=== PATIENT | female | born 2005 | race Caucasian/White ===

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

== ENCOUNTER 2023-04-19 22:21 | Observation (INO) | payer OTHER, SELFPAY ==
[2023-04-19 22:46] VITALS: BP 98/59; PULSE 93
[2023-04-19 23:00] VITALS: BP 103/60; PULSE 96
--- NOTE | 2023-04-19 23:28 | PC.NURSE ---
NST attempted per orders of Dr. Ratliff but unsuccessful. Doppler completed bedside. FHR baseline 145. No contractions noted on monitor. Pt cramping has decreased and she has marked movement of fetus.
[2023-04-19 23:58] VITALS: BP 98/56; PULSE 69; RESP 18; TEMP 36.7; O2SAT 99; BMI 18.7
--- NOTE | 2023-04-20 | OBADM ---
This patient, Malika Sauceda, admitted to the OB room OB Post 116 for observation. Patient/family oriented to hospital policies and general routines including ID bracelet, bed and alarms, visiting hours, pain management, procedures, bathroom and other care routines, personal items, smoking policy, room service/diet, and visiting hours. Patient/Family are encouraged to report perceived risks to care and to ask questions if they do not understand what they are told or what they should do.
--- NOTE | 2023-04-22 10:50 | PM.OBTRLD ---
OB - Triage/Final Diagnosis Visit Information Comments/Additional reasons for admission: I have assessed the risk for this patient, Malika Sauceda, and determined that she would benefit from observation care. Final Diagnosis (1) Cramping affecting , antepartum: Code(s): O26.899 - Other specified related conditions, unspecified trimester; R10.9 - Unspecified abdominal pain Status: Acute
== END 2023-04-20 00:10 | disposition home or self-care (01) ==
PROVIDERS: Admitting Provider Obstetrics & Gynecology; PCP Family Medicine; Visit Provider Obstetrics & Gynecology
DX: O26.899 Other specified pregnancy related conditions, unspecified trimester (principal); R10.9 Unspecified abdominal pain; Z3A.00 Weeks of gestation of pregnancy not specified
CPT/HCPCS: 99199; G0378; G0379

== ENCOUNTER 2023-05-17 12:58 | Observation (INO) | payer OTHER, SELFPAY ==
[2023-05-17] VITALS (68 sets, daily range): BP systolic 107–119; BP diastolic 61–69; PULSE 74–190; RESP 16; TEMP 37–37.3; O2SAT 94–100; BMI 19.1
--- NOTE | 2023-05-17 13:30 | OBADM ---
This patient, Malika Sauceda, admitted to the OB room 115 for observation. Patient/family oriented to hospital policies and general routines including ID bracelet, bed and alarms, visiting hours, pain management, procedures, bathroom and other care routines, personal items, smoking policy, room service/diet, and visiting hours. Patient/Family are encouraged to report perceived risks to care and to ask questions if they do not understand what they are told or what they should do.
[2023-05-17 15:18] LABS: Appearance Urine Clear (Clear); Bacteria Urine None Seen /hpf; Bilirubin Urine Negative (Negative); Blood Urine Negative (Negative); Color Urine Yellow (Yellow); Glucose Urine UA Negative (Negative); Ketones Urine Negative (Negative); Leukocyte Esterase Ur 3+ LEU/UL (Negative); Need Manual Microscopic Reviewed; Nitrate Urine Negative (Negative); Non Pathogenic Casts 0-2; Protein Urine Negative (Negative); RBC Urine 0-2 /hpf (0-2); Specific Grav Ur 1.004 (1.001-1.035); Squamous Epithelial Cell Urine Few /hpf (Few); Urobilinogen Urine 0.2 mg/dL (<2.0); pH Urine 7.5 (5.0-9.0)
[2023-05-17 15:23] LABS: Add Urine Microscopic? YES
[2023-05-17] MEDS: LACTATED RINGERS 1,000 ML 999 ML IV CONT (15:53)
[2023-05-17] MEDS: cefTRIAXone 2 GM/NS 100 ML 2 GM/100 ML BAG IVPB (16:20)
[2023-05-17] MEDS: ACETAMINOPHEN 500 MG TABLET 1000 MG PO (17:13)
[2023-05-17] MEDS: TERBUTALINE SULFATE 1 MG/ML VIAL 0.25 MG SUB-Q (18:49)
--- NOTE | 2023-05-17 19:40 | PC.NURSE ---
Occasional contraction noted with uterine irritability present prior to terb. Pt states cramping pain has decreased since receiving the terbutaline and she feels comfortable leaving at this time. Fundus soft to palpation. Instructed to bead picker abx in the morning and call office if symptoms have worsened. Precautions given.
--- NOTE | 2023-05-23 13:01 | PM.OBTRLD ---
OB - Triage/Final Diagnosis Visit Information Comments/Additional reasons for admission: I have assessed the risk for this patient, Malika Sauceda, and determined that she would benefit from observation care. Evaluation Laboratory results: Laboratory Tests 05/17/23 14:19 Urine Color Yellow Urine Appearance Clear Urine pH 7.5 Ur Specific [place] 1.004 Urine Protein Negative Urine Glucose (UA) Negative Urine Ketones Negative Ur Blood (Man) Negative Urine Nitrate Negative Urine Bilirubin Negative Urine Urobilinogen 0.2 Add Ur Microanalysis Reviewed Leukocyte Esterase Rfl 3+ H Urine RBC 0-2 Urine WBC 11-20 H Ur Squamous Epith Cells Few Urine Bacteria None seen Urine Casts 0-2 Final Diagnosis (1) Irregular contractions: Code(s): O47.9 - False labor, unspecified Status: Acute (2) Vaginal discharge during : Code(s): O26.899 - Other specified related conditions, unspecified trimester; N89.8 - Other specified noninflammatory disorders of vagina Status: Acute
== END 2023-05-17 19:42 | disposition home or self-care (01) ==
LOC: ANHOBOP 13:16 → ANHOBPP 13:18 → ANHOBOP 13:37 → ANHOBPP 13:37
PROVIDERS: Admitting Provider Obstetrics & Gynecology; PCP Family Medicine; Visit Provider Obstetrics & Gynecology
DX: O47.02 False labor before 37 completed weeks of gestation, second trimester (principal); O26.892 Other specified pregnancy related conditions, second trimester; N89.8 Other specified noninflammatory disorders of vagina; Z3A.27 27 weeks gestation of pregnancy
CPT/HCPCS: 81001; 84112; 87077; 87086; 87088; 96365; 96372; A9270; G0378; G0379; J0696; J3105; J7120

== ENCOUNTER 2023-06-16 06:58 | Observation (INO) | payer OTHER, SELFPAY ==
[2023-06-16] VITALS (14 sets, daily range): BP systolic 106–123; BP diastolic 59–79; PULSE 67–121; BMI 20.1
--- NOTE | ~2023-06-16 | US_ITS ---
EXAMINATION: US OB follow up DATE: 06/16/2023 08:12 INDICATION: Vaginal bleeding during third trimester TECHNIQUE: Real-time ultrasound of the pelvis was performed. The interpreting radiologist was not pre sent for the study. COMPARISON: None. FINDINGS: There is a single living fetus in vertex presentation. The placenta is anterior/fundal. Fet al cardiac activity and movement are noted. heart rate is 139 beats per minute (bpm). The amniotic fluid index is 14.4 which is normal (normal range: 8.8 cm to 23.8 cm). The following biometric data were obtained: Biparietal diameter (BPD): 8.2 cm; head circumference (HC): 29.8 cm; abdominal circumference (AC): 28 .4 cm; femur length (FL): 5.9 cm. These measurements are concordant. Estimated weight is 1905 g +/- 285 g, which correlates with the 52nd percentile when 08/13/2023 is used as estimated date of delivery. As single measurements, these parameters are each equal to the following estimated gestational ages w ith ranges of +/- 2 standard deviations: BPD: 32 weeks 6 days +/- 3 weeks 1 days. HC: 33 weeks 1 days +/- 3 weeks 0 days. AC: 32 weeks 3 days +/- 3 weeks 0 days. FL: 31 weeks 0 days +/- 3 weeks 0 days. estimated gestational age based solely on measurements from this exam is 32 weeks 3 days +/- 2 weeks 2 days. IMPRESSION: 1. Single living fetus in vertex presentation. 2. Normal amniotic fluid index. 3. Estimated weight is 1905 g +/- 285 g, which correlates with the 52nd percentile when 08/13/19 24 is used as estimated date of delivery. Reviewed, dictated and finalized at location L. [employer] IMPRESSION: 1. Single living fetus in vertex presentation. 2. Normal amniotic fluid index. 3. Estimated weight is 1905 g +/- 285 g, which correlates with the 52nd p ercentile when 08/13/2023 is used as estimated date of delivery.
--- NOTE | 2023-06-16 07:34 | LDADM ---
This patient, Malika Sauceda, was admitted to OB Post 113 on 06/16/23 at 06:58. Plans for labor, pain management and were discussed with patient. Patient/family oriented to hospital policies and general routines including ID bracelet, bed and alarms, visiting hours, pain management, procedures, bathroom and other care routines, personal items, smoking policy, room service/diet and guest tray routines, infant security routines, and visiting hours. Patient/Family are encouraged to report perceived risks to care and to ask questions if they do not understand what they are told or what they should do. See OBIX for further documentation.
--- NOTE | 2023-06-16 07:37 | PC.NURSE ---
Patient presented to L&D unit with complaints of vaginal bleeding since 0600. Patient felt bleeding and put a isamar pad on. Patient presented picture of her bleeding from this morning. Patient had small amount of red blood on isamar pad. Patient has had no bleeding since the initial amount. She complains of mild abdominal cramping. RN spoke with Dr. Ribeiro and obtained observation orders as well as orders for an ultrasound and cervical exam. Patient agrees with plan of care at this time and has no questions.
[2023-06-16 07:56] LABS: Appearance Urine Clear (Clear); Bacteria Urine None Seen /hpf; Bilirubin Urine Negative (Negative); Blood Urine Trace (Negative); Color Urine Yellow (Yellow); Glucose Urine UA Negative (Negative); Ketones Urine Negative (Negative); Leukocyte Esterase Ur 3+ LEU/UL (Negative); Nitrate Urine Negative (Negative); Non Pathogenic Casts 0-2; Protein Urine Negative (Negative); RBC Urine 0-2 /hpf (0-2); Specific Grav Ur 1.004 (1.001-1.035); Squamous Epithelial Cell Urine Occasional /hpf (Few); Urobilinogen Urine 0.2 mg/dL (<2.0); WBC Urine 51-100 /hpf; pH Urine 7.5 (5.0-9.0)
[2023-06-16 08:30] LABS: Add Urine Microscopic? YES
--- NOTE | 2023-06-16 10:53 | PM.IMHP ---
H&P: HPI History of Present Illness Date/Time: 06/16/23 10:53 Chief Complaint: vaginal bleeding Narrative: This patient is a 17-year-old 1 at 32 weeks gestation who presents with vaginal bleeding. She was observed for some time. She was observed having some a contractions on the monitor. No blood was appreciated here. Ultrasound performed. The placenta appears placed with no evidence of Abruption. Cervix is normal length. Digital exam was normal. Urine showed white cells and red blood cells in significant amounts. Will treat for urinary tract infection and discharged from home. Uterus adult down after a period of observation. More than 30 minutes were spent on the evaluation and management of this patient. Review of Systems Review of Systems: All systems reviewed & are unremarkable except as noted in HPI and below Constitutional: Constitutional: Denies chills, Denies fatigue, Denies fever(s) and Denies weakness Eyes: Eyes: Denies blurry vision, Denies change in vision, Denies loss of peripheral vision, Denies loss of vision, Denies other visual disturbances and Denies eye pain ENT: Denies vertigo, Denies dizziness, Denies hearing loss, Denies mouth pain, Denies nasal obstruction, Denies neck mass and Denies neck pain Cardiovascular: Cardiovascular: Denies chest pain, Denies diaphoresis, Denies syncope, Denies leg edema and Denies dyspnea Respiratory: Respiratory: Denies chest congestion, Denies cough, Denies hemoptysis, Denies dyspnea and Denies wheezing Gastrointestinal: Gastrointestinal: Denies abdominal pain, Denies constipation, Denies diarrhea, Denies nausea and Denies vomiting Genitourinary: Genitourinary: Denies hematuria, Denies change in libido, Denies nocturia, Denies genital lesions, Denies flank pain and Denies urinary urgency Musculoskeletal: Musculoskeletal: Denies abnormal gait, Denies back pain, Denies myalgias, Denies arthralgias, Denies joint swelling, Denies muscle weakness and Denies neck pain Integumentary/Breasts: Skin/Breast: Denies swelling, Denies breast pain, Denies breast mass, Denies dry skin, Denies nipple discharge, Denies unusual bruising and Denies jaundice Neurologic: Denies Neuro-related abnormal movements, Denies Abnormal speech present, Denies abnormal gait, Denies behavioral changes, Denies confusion, Denies vertigo, Denies dizziness, Denies syncope, Denies loss of vision, Denies memory loss, Denies convulsions and Denies weakness Psychiatric: Psychiatric: Denies abnormal sleep pattern, Denies behavioral changes, Denies change in libido, Denies confusion, Denies depression, Denies anhedonia and Denies memory loss Endocrine: Endocrine: Reports no additional endocrine complaints, Denies change in libido and Denies fatigue Hematologic/Lymphatic: Hematologic/Lymphatic: Reports no additional hematologic/lymphatic complaints Allergic/Immunologic: Allergic/Immunologic: Reports no additional allergic/immunologic complaints and Denies wheezing PMFSH Past Medical History Medical History (Updated 06/16/23 @ 10:56 by Sarai Ribeiro MD) No pertinent past medical history Social History Social History (Updated 12/19/22 @ 14:18 by Shweta Espana APRN) Tobacco type: e-cigarettes/vaping Meds Home Medications and Allergies Home Medications Medication Instructions Recorded Confirmed Type vitamin #56-iron 35 mg 1 cap PO DAILY #30 caps 12/19/22 05/17/23 Rx and 5 mg-folic acid 1 mg-dha capsule albuterol sulfate 90 mcg/actuation 2 puff inhalation Q4H PRN 05/17/23 05/17/23 History aerosol inhaler Shortness Of Breath cephalexin 500 mg capsule 500 mg PO Q6H 7 days #28 caps 05/17/23 Rx ferrous sulfate 142 mg (45 mg 142 mg PO DAILY 05/17/23 05/17/23 History iron) tablet,extended release ondansetron 4 mg disintegrating 4 mg PO Q6H PRN Nausea And Vomiting 05/17/23 05/17/23 History tablet Allergies Allergy/AdvReac Type Severity Reaction Status Date / [place]
--- NOTE | 2023-06-16 11:13 | PC.NURSE ---
Dr. Ribeiro at bedside, okay to discharge with macrobid. Patient has OB appt tomorrow.
--- NOTE | 2023-07-03 11:23 | PM.OBTRLD ---
OB - Triage/Final Diagnosis Visit Information Comments/Additional reasons for admission: I have assessed the risk for this patient, Malika Sauceda, and determined that she would benefit from observation care. Evaluation Laboratory results: Laboratory Tests 06/16/23 07:35 Urine Color Yellow Urine Appearance Clear Urine pH 7.5 Ur Specific [place] 1.004 Urine Protein Negative Urine Glucose (UA) Negative Urine Ketones Negative Ur Blood (Man) Trace Urine Nitrate Negative Urine Bilirubin Negative Urine Urobilinogen 0.2 Leukocyte Esterase Rfl 3+ H Urine RBC 0-2 Urine WBC 51-100 H Ur Squamous Epith Cells Occasional Urine Bacteria None seen Urine Casts 0-2 Final Diagnosis (1) Vaginal bleeding during : Code(s): O46.90 - Antepartum hemorrhage, unspecified, unspecified trimester Status: Acute
== END 2023-06-16 11:15 | disposition home or self-care (01) ==
PROVIDERS: Admitting Provider Obstetrics & Gynecology; Visit Provider Obstetrics & Gynecology
DX: O46.93 Antepartum hemorrhage, unspecified, third trimester (principal); O23.43 Unspecified infection of urinary tract in pregnancy, third trimester; N39.0 Urinary tract infection, site not specified; Z3A.31 31 weeks gestation of pregnancy
CPT/HCPCS: 76816; 81001; 87086; G0378; G0379

== ENCOUNTER 2023-07-09 20:06 | Observation (INO) | payer OTHER, SELFPAY ==
[2023-07-09 20:48] VITALS: BMI 20.9
[2023-07-09] MEDS: ACETAMINOPHEN 500 MG TABLET 1000 MG PO (20:52)
[2023-07-09 20:57] VITALS: BP 121/73; PULSE 97
[2023-07-09] MEDS: NIFEdipine 30 MG TAB.ER.24 PO (21:33)
[2023-07-09 21:36] LABS: Appearance Urine Cloudy (Clear); Bacteria Urine 1+ /hpf; Bilirubin Urine Negative (Negative); Blood Urine 1+ (Negative); Color Urine Yellow (Yellow); Glucose Urine UA Negative (Negative); Ketones Urine Negative (Negative); Leukocyte Esterase Ur 3+ LEU/UL (Negative); Nitrate Urine Negative (Negative); Non Pathogenic Casts 0-2; Protein Urine Negative (Negative); Specific Grav Ur 1.008 (1.001-1.035); Squamous Epithelial Cell Urine Few /hpf (Few); Urobilinogen Urine 0.2 mg/dL (<2.0); WBC Urine >100 /hpf (0-3)
--- NOTE | 2023-07-09 21:36 | OBADM ---
This patient, Malika Sauceda, admitted to the OB room Labor/Delivery/Recovery 106 for observation. Patient/family oriented to hospital policies and general routines including ID bracelet, bed and alarms, visiting hours, pain management, procedures, bathroom and other care routines, personal items, smoking policy, room service/diet, and visiting hours. Patient/Family are encouraged to report perceived risks to care and to ask questions if they do not understand what they are told or what they should do.
[2023-07-09 21:38] LABS: Add Urine Microscopic? YES
--- NOTE | 2023-07-09 21:53 | PC.NURSE ---
2006: pt presents to L&D with complaints of contractions that began this afternoon. pt states she had to have terbutaline shot at around 23 weeks for labor and has a history of UTI's in which she is taking a daily antibiotic for until delivery. pt denies any leaking of fluid or vaginal bleeding and has positive movement.
--- NOTE | 2023-07-09 21:54 | PC.NURSE ---
2036: Breezy Medina [facility] notified of pt status, orders obtained. 2039: pt refusing terbutaline. states she does not want it because she does not like the way it makes her feel. educated on risks of not receiving the medication, pt verbalizes understanding and states she still refuses. 2102: Breezy Medina [facility] notified of pt refusal of medication. new med orders obtained. 2109: pt refusing IV and IV fluid bolus but will take procardia PO. educated on risks of receiving IV fluid bolus, pt verbalizes understanding and states she still refuses. Encouraged pt to oral hydrate.
--- NOTE | 2023-07-09 22:07 | PC.NURSE ---
2002: Breezy CHAIDEZ notified of pt urine results, orders obtained
[2023-07-09] MEDS: LIDOCAINE HCL 1% LOCAL INJ 20 ML VIAL INFILTRATE (22:45)
[2023-07-09] MEDS: cefTRIAXone 250 MG VIAL IM (22:45)
--- NOTE | 2023-07-09 22:51 | PC.NURSE ---
2202: Abbie [facility] notified of urine results, orders obtained
--- NOTE | 2023-07-09 23:11 | PC.NURSE ---
2308: Breezy CHAIDEZ notified of pt status, instructed to send pt home if she is comfortable with that
--- NOTE | 2023-07-09 23:20 | PC.NURSE ---
2320: pt states she would like to go home. educated on when to call or come back to OB.
--- NOTE | 2023-07-11 16:39 | PM.OBTRLD ---
OB - Triage/Final Diagnosis Visit Information Date of evaluation: 07/09/23 Reason for evaluation: threatened labor Comments/Additional reasons for admission: I have assessed the risk for this patient, Malika Sauceda, and determined that she would benefit from observation care. Evaluation Laboratory results: Laboratory Tests 07/09/23 21:11 Urine Color Yellow Urine Appearance Cloudy H Urine pH 7.0 Ur Specific [place] 1.008 Urine Protein Negative Urine Glucose (UA) Negative Urine Ketones Negative Ur Blood (Man) 1+ H Urine Nitrate Negative Urine Bilirubin Negative Urine Urobilinogen 0.2 Leukocyte Esterase Rfl 3+ H Urine RBC 6-10 H Urine WBC >100 H Ur Squamous Epith Cells Few Urine Bacteria 1+ H Urine Casts 0-2
== END 2023-07-09 23:44 | disposition home or self-care (01) ==
PROVIDERS: Advanced Practice Midwife; Admitting Provider Obstetrics & Gynecology; Visit Provider Obstetrics & Gynecology
DX: O47.03 False labor before 37 completed weeks of gestation, third trimester (principal); Z3A.35 35 weeks gestation of pregnancy
CPT/HCPCS: 87086; 87088; 96372; A9270; G0378; G0379; J0696

== ENCOUNTER 2023-07-10 14:25 | Observation (INO) | payer OTHER, SELFPAY ==
--- NOTE | ~2023-07-10 | US_ITS ---
EXAMINATION: US OB limited DATE: 07/10/2023 17:31 INDICATION: Placenta check, vaginal bleeding . TECHNIQUE: Real-time ultrasound of the pelvis was performed. COMPARISON: 06/16/2023. FINDINGS: There is a single living fetus in vertex presentation. The placenta is anterior, normal in appearanc e, and well distant from the cervix. The cervix was obscured by the head. heart rate is 1 47 bpm. IMPRESSION: Single living fetus in vertex presentation. Sonographically normal appearing placenta. Reviewed, dictated and finalized at location K.
[2023-07-10 14:52] VITALS: BP 110/72; PULSE 122
[2023-07-10 15:00] VITALS: BP 104/69; PULSE 117
[2023-07-10 15:15] VITALS: BP 107/61; PULSE 96
[2023-07-10 15:30] VITALS: BP 102/64; PULSE 107
--- NOTE | 2023-07-10 15:32 | OBADM ---
This patient, Malika Sauceda, admitted to the OB room OB Post 117 for observation. Patient/family oriented to hospital policies and general routines including ID bracelet, bed and alarms, visiting hours, pain management, procedures, bathroom and other care routines, personal items, smoking policy, room service/diet, and visiting hours. Patient/Family are encouraged to report perceived risks to care and to ask questions if they do not understand what they are told or what they should do.
[2023-07-10 15:45] VITALS: BP 100/58; PULSE 95
[2023-07-10 16:00] VITALS: BP 96/59; PULSE 99
--- NOTE | 2023-07-11 16:37 | PM.OBTRLD ---
OB - Triage/Final Diagnosis Visit Information Date of evaluation: 07/10/23 Reason for evaluation: other (bleeding) Comments/Additional reasons for admission: I have assessed the risk for this patient, Malika Sauceda, and determined that she would benefit from observation care.
== END 2023-07-10 18:28 | disposition home or self-care (01) ==
PROVIDERS: Admitting Provider Obstetrics & Gynecology; Visit Provider Obstetrics & Gynecology
DX: O46.93 Antepartum hemorrhage, unspecified, third trimester (principal); Z3A.35 35 weeks gestation of pregnancy
CPT/HCPCS: 76815; G0378; G0379

== ENCOUNTER 2023-07-27 16:36 | Outpatient (CLI) | payer OTHER, SELFPAY ==
[2023-07-27 19:40] VITALS: BP 126/79; PULSE 100
== END 2023-07-27 18:55 | disposition home or self-care (01) ==
LOC: ANHOBOP 18:48 → ANHOBPP 18:52
PROVIDERS: Visit Provider Advanced Practice Midwife
DX: O42.90 Premature rupture of membranes, unspecified as to length of time between rupture and onset of labor, unspecified weeks of gestation (principal); Z3A.00 Weeks of gestation of pregnancy not specified
CPT/HCPCS: 59025; 84112; 99199

== ENCOUNTER 2023-08-07 05:06 | Inpatient (IN) | payer OTHER, SELFPAY ==
[2023-08-07] VITALS (116 sets, daily range): BP systolic 69–146; BP diastolic 45–96; PULSE 47–166; RESP 15–16; TEMP 36.2–37; O2SAT 80–100; BMI 22.9
--- NOTE | 2023-08-07 05:46 | LDADM ---
This patient, Malika Sauceda, was admitted to Labor/Delivery/Recovery 104 on 08/07/23 at 05:06. Plans for labor, pain management and were discussed with patient. Patient/family oriented to hospital policies and general routines including ID bracelet, bed and alarms, visiting hours, pain management, procedures, bathroom and other care routines, personal items, smoking policy, room service/diet and guest tray routines, security routines, and visiting hours. Patient/Family are encouraged to report perceived risks to care and to ask questions if they do not understand what they are told or what they should do. See OBIX for further documentation.
[2023-08-07 05:52] LABS: Basophils Percent Auto 0.2 % (0.2-1.2); Eosinophils Absolute Auto 0.2 K/mm3 (0-0.3); Eosinophils Percent Auto 1.1 % (0-4.4); Hematocrit 39.6 % (37.0-47.0); Immature Granulocyte Absolute 0.06 K/mm3 (0.00-0.031); Immature Granulocyte Percent A 0.4 % (0-0.5); Lymphocytes Absolute Auto 2.53 K/mm3 (0.9-3.2); Lymphocytes Percent Auto 18.2 % (18.3-44.2); Mean Corpuscular HGB Conc 32.8 g/dl (32-36); Mean Corpuscular Volume 94.3 fl (80-100); Mean Platelet Volume 11.6 fl (7.4-10.4); Monocytes Absolute Auto 0.8 K/mm3 (0.1-0.6); Monocytes Percent Auto 5.9 % (2.6-8.5); Neutrophils Absolute Auto 10.3 K/mm3 (1.3-6.7); Neutrophils Percent Auto 74.2 % (45.5-73.1); Platelet Count Result 230 k/mm3 (150-375); Red Cell Distribution Width 14.8 % (11.5-14.5); White Blood Count 13.9 K/mm3 (4.5-10.0)
[2023-08-07] MEDS: ONDANSETRON INJ 4 MG/2 ML VIAL IV PUSH ×2 (06:06→12:31)
[2023-08-07] MEDS: LACTATED RINGERS 1,000 ML 125 ML IV CONT ×3 (06:06→12:14)
[2023-08-07] MEDS: fentaNYL CITRATE INJ (*CRX) 100 MCG/2 ML VIAL 50 MCG IV PUSH (06:21)
--- NOTE | 2023-08-07 06:28 | WPDANESEPPF ---
Anes - Initial Pre Proc Eval Procedure: Labor epidural Date/Time: 08/07/23 06:28 Surgeon: Erik Ratliff MD Pre Op Diagnosis: Lsbor pain Pre Op Diagnosis: Contractions Patient Data Age: 18 Gender: F Height: 1.57 m Weight: 57 kg Last Vital Signs Pulse 75 08/07/23 05:45 BP 143/96 H 08/07/23 05:45 Pulse Ox 97 08/07/23 06:26 O2 Del Method Room Air 08/07/23 05:45 Allergies Allergy/AdvReac Type Severity Reaction Status Date / Time No Known Allergies Allergy Verified 12/19/22 13:40 Home Medications Medication Instructions Recorded Confirmed Type vitamin #56-iron 35 mg 1 cap PO DAILY #30 caps 12/19/22 07/09/23 Rx and 5 mg-folic acid 1 mg-dha capsule albuterol sulfate 90 mcg/actuation 2 puff inhalation Q4H PRN 05/17/23 07/09/23 History aerosol inhaler Shortness Of Breath ferrous sulfate 142 mg (45 mg 142 mg PO BID 05/17/23 07/09/23 History iron) tablet,extended release ondansetron 4 mg disintegrating 4 mg PO Q6H PRN Nausea And Vomiting 05/17/23 07/09/23 History tablet nitrofurantoin macrocrystal 100 mg 100 mg PO Q12H #14 caps 07/10/23 Rx capsule Laboratory Tests 08/07/23 05:37 WBC 13.9 H K/mm3 (4.5-10.0) RBC 4.20 M/mm3 (4.2-5.4) Hgb 13.0 g/dL (12.0-15.0) Hct 39.6 % (37.0-47.0) MCV 94.3 fl (80-100) MCH 31.0 pg (26-34) MCHC 32.8 g/dl (32-36) RDW 14.8 H % (11.5-14.5) Plt Count 230 k/mm3 (150-375) MPV 11.6 H fl (7.4-10.4) Immature Gran % (Auto) 0.4 % (0-0.5) Neut % (Auto) 74.2 H % (45.5-73.1) Lymph % (Auto) 18.2 L % (18.3-44.2) [place] % (Auto) 5.9 % (2.6-8.5) Eos % (Auto) 1.1 % (0-4.4) Baso % (Auto) 0.2 % (0.2-1.2) Lymph # (Auto) 2.53 K/mm3 (0.9-3.2) [place] # (Auto) 0.8 H K/mm3 (0.1-0.6) Eos # (Auto) 0.2 K/mm3 (0-0.3) Baso # (Auto) 0.0 K/mm3 (0.0-0.1) Abs Immat Gran (auto) 0.06 H K/mm3 (0.00-0.031) Absolute Neuts (auto) 10.3 H K/mm3 (1.3-6.7) Absolute Nucleated RBC 0.000 K/mm3 (0.0-0.012) Nucleated RBC % 0.0 % (0.0-0.2) RPR Pending Blood Type Pending Antibody Screen Pending Patient hx anesthesia problems: none Family hx anesthesia problems: none Results Review: All pre-operative results and documents have been reviewed as part of the pre-operative evaluation. [facility] Past Medical History Medical History No pertinent past medical history Family History Family History Other Patient denies significant medical history Social History Social History Smoking status: Current every day smoker Tobacco type: e-cigarettes/vaping Substance use: current Last use: daily Do You Feel Safe in your Home?: Yes Lack of Transportation: No Lack of Food: Never True Current Housing: I Have Housing Concerned About Future Housing: No Difficulty Paying Gas/Electric Bills: No Difficulty Paying for Meds: No Currently Unemployed: No Education: Grade School Difficulty w/ Childcare or Family Care: No Spiritual care concerns: No Anes - Eval Final PreProcedure Day of Procedure 08/07/23 06:28 Patient weight: normal Heart: regular rate and rhythm Lungs: clear to auscultation Airway: Mallampati scale class II Neurological: alert and oriented ASA classification: III Anesthesia type and monitoring: regional epidural and standard monitoring Results Review: All pre-operative results and documents have been reviewed as part of the pre-operative evaluation. Informed Consent: The patient's anesthetic plan and its attendant risks and benefits were discussed with the patient/family/POA. Questions were solicited and answers provided to the satisfaction of the patient/family/POA.
[2023-08-07] MEDS: ALBUTEROL SULFATE (*SP) AEROSOL 1 PUFF 2 PUFF INHALATION (11:35)
--- NOTE | 2023-08-07 12:33 | WPDOBADMIT ---
Obstetrics - Admit Note Admission Note: record reviewed. No pertinent additions to the history and/or any subsequent changes in the physical findings that are not consistent with the expected course of the were found. Additions to the history and/or subsequent changes in the physical findings follow. pt arrived in labor, anticipate vaginal dleivery
[2023-08-07] MEDS: OXYTOCIN 30 UNITS/NS 500 ML 30 UNITS/500 ML BAG 999 UNITS IV CONT (13:18)
--- NOTE | 2023-08-07 13:28 | P.PCNOB_ITS ---
OB - Vaginal Delivery Note Procedure Delivery date: 08/07/23 Delivery monitor: External FHT and Internal Uterine Episiotomy description: None Laceration Description: Labial (right, 1 stitch) Delivery repair: vicryl Specimen: No Quantitative Blood Loss (ml): 175 Anesthesia type: Epidural Disposition: Floor Complications: No immediate complications [place] Baby Date of : 08/07/23 Time of : 13:13 Weeks of gestation at delivery: 39 gender: Female presentation: vertex position: Left Occiput Anterior Placenta delivery description: Spontaneous Cord Vessel Description: 3 Vessels and Delayed Cord Clamping score one minute: 8 score five minutes: 9 Narrative: mother and baby skin to skin in stable condition
[2023-08-07] MEDS: OXYTOCIN 30 UNITS/NS 500 ML 30 UNITS/500 ML BAG 125 UNITS IV CONT (13:52)
[2023-08-07] MEDS: ACETAMINOPHEN 325 MG TABLET 650 MG PO (15:41)
[2023-08-07] MEDS: BENZOCAINE 20% AER SPR (*SP) 56 GM CAN 1 SPRAY TOPICAL (15:42)
[2023-08-07] MEDS: WITCH HAZEL 40 PADS 1 PAD TOPICAL (15:42)
--- NOTE | 2023-08-07 16:27 | OBPPTRN ---
Patient transferred to post room #292 via wheelchair, baby in crib at bedside. Support person present. Oriented to unit, room, information board, rooming in, admission packet and security measures. Patient verbalizes understanding.
[2023-08-07] MEDS: DOCUSATE SODIUM 100 MG CAPSULE PO (18:03)
[2023-08-07] MEDS: IBUPROFEN 600 MG TABLET PO (18:04)
[2023-08-08 04:00] VITALS: BP 94/56; PULSE 74; RESP 18; TEMP 36.9; O2SAT 99
[2023-08-08 06:08] LABS: Hematocrit 35.6 % (37.0-47.0); Hemoglobin 11.6 g/dL (12.0-15.0)
--- NOTE | 2023-08-08 07:36 | WPDANLDPN2 ---
Anes-Prog Note L&D Date/Time: 08/08/23 07:36 Comfortable throughout: labor and delivery Neuraxial method: epidural Epidural/Spinal procedure site: clean & non-tender Neuro status: Neuro function grossly intact. Cardiovascular status: normal Respiratory status: normal Airway patency: baseline Mental status: baseline Post-Op hydration status: normal Vital Signs: Last Vital Signs Temp 37.0 C 08/07/23 19:41 Pulse 99 08/07/23 19:41 Resp 15 08/07/23 19:41 BP 129/70 08/07/23 19:41 Pulse Ox 99 08/07/23 19:41 O2 Del Method Room Air 08/07/23 05:45 Pain score (VAS): 2 I/O: Intake & Output 08/07/23 08/07/23 08/08/23 15:59 23:59 07:59 Intake Total 1210.4 Output Total 325 Balance 885.4 Patient feedback: Patient satisfied with anesthetic care.
[2023-08-08 07:45] VITALS: BP 120/70; PULSE 88; RESP 18; TEMP 36.9; O2SAT 100
--- NOTE | 2023-08-08 08:22 | WPDANLDPN2 ---
Anes-Prog Note L&D Date/Time: 08/08/23 08:22 Comfortable throughout: labor and delivery Neuraxial method: epidural Epidural/Spinal procedure site: tender (localized tenderness to epidural site) Neuro status: Neuro function grossly intact. Cardiovascular status: normal Respiratory status: normal Airway patency: baseline Mental status: baseline Post-Op hydration status: normal Vital Signs: Last Vital Signs Temp 36.9 C 08/08/23 04:00 Pulse 74 08/08/23 04:00 Resp 18 08/08/23 04:00 BP 94/56 L 08/08/23 04:00 Pulse Ox 99 08/08/23 04:00 O2 Del Method Room Air 08/07/23 05:45 Pain score (VAS): 1/10 Patient feedback: Patient satisfied with anesthetic care.
--- NOTE | 2023-08-08 08:28 | PM.OBPNVD ---
OB - PN: Subj Subjective Date/time seen: 08/08/23 08:28 Interval history: pp day 1 doing well baby not feeding well OB - PN: Obj Data Labs 08/08/23 05:04 Labs: Laboratory Results - last 24 hr 08/08/23 05:04 Hgb 11.6 L Hct 35.6 L OB - PN A/P Plan day: 1 Plan: routine care Time Spent With Patient Time: Total time spent is greater than 50% in coordination of care (as documented) at patient's floor/unit and/or counseling patient: Review of Systems Review of Systems: All systems reviewed & are unremarkable except as noted in HPI and below Exam Const: General: cooperative and healthy appearing Chest: Chest palpation & inspection: normal inspection of the chest Resp: Effort & Inspection: normal respiratory effort Cardio: Rate: regular rate Back/Spine/Pelvis: Back: no CVA tenderness Skin: General skin exam: normal color Neuro: General: patient oriented x3
[2023-08-08] MEDS: IBUPROFEN 600 MG TABLET PO ×2 (09:13→16:08)
[2023-08-08 12:34] VITALS: BP 118/79; PULSE 58; RESP 16; TEMP 36.9; O2SAT 100
[2023-08-08] MEDS: DOCUSATE SODIUM 100 MG CAPSULE PO (16:08)
[2023-08-08 20:00] VITALS: BP 136/83; PULSE 84; RESP 16; TEMP 37; O2SAT 100
[2023-08-09] MEDS: ACETAMINOPHEN 325 MG TABLET 650 MG PO (00:20)
--- NOTE | 2023-08-09 06:46 | PM.OBPNVD ---
OB - PN: Subj Subjective Date/time seen: 08/09/23 06:46 Interval history: pp day 2 doing well baby doing well OB - PN: Obj Data Labs 08/08/23 05:04 OB - PN A/P Time Spent With Patient Time: Total time spent is greater than 50% in coordination of care (as documented) at patient's floor/unit and/or counseling patient:
--- NOTE | 2023-08-09 06:48 | PM.OBDSVD ---
DS: Admitting Diagnosis Discharge Date 08/09/23 Admitting Diagnosis labor DS: Discharge Diagnosis Discharge Diagnosis (1) Vaginal delivery: Code(s): O80 - Encounter for full-term uncomplicated delivery Status: Acute OB - DS: Summary OB Procedures : None OB Procedures Intrapartum: Spontaneous Vag Delivery OB Procedures: : None Peripartum Data Laceration Description: Labial (right, 1 stitch) Episiotomy description: None Time Spent with Patient Time attestation: Total time spent providing and/or coordinating discharge services: Discharge Plan Discharge Attending physician on discharge: Sarai Ribeiro Consulting providers: Adrianna Medina Discharging Clinician: Adrianna Medina Patient Disposition: Home, Self-Care Activity: pelvic rest Diet: regular Patient Instructions: Antibiotic Form Stand Alone Forms: General Discharge Information Follow-up/Referrals: Adrianna Medina, CNM [Certified Nurse Mission Systems Engineer] - Discharge Medications: New ibuprofen 600 mg Tablet 600 mg PO Q6H PRN (Reason: Cramping) Qty: 30 0RF Continued PNV #[id number] acid-dha 35 mg iron-5 mg iron-1 mg capsule 1 cap PO DAILY Qty: 30 0RF albuterol sulfate 90 mcg/actuation HFA aerosol inhaler 2 puff INHALATION Q4H PRN (Reason: Shortness Of Breath) ferrous sulfate 142 mg (45 mg iron) Tablet Extended Release 142 mg PO BID Discontinued ondansetron 4 mg tablet,disintegrating 4 mg PO Q6H PRN (Reason: Nausea And Vomiting) Date of admission: 08/07/23 05:06 Primary Care Provider: PHYSICIAN,ENGINEER CHIEF Admitting Provider: Erik Ratliff Attending physician on admission: Erik Ratliff Condition: Stable
[2023-08-09 07:15] VITALS: BP 130/78; PULSE 70; RESP 16; TEMP 37.2; O2SAT 100
[2023-08-09] MEDS: TETANUS,DIPHTHERIA,AC PERTUSSIS ADULT (0.5 ML) BOOSTRIX IM (08:51)
[2023-08-09 12:36] LABS: Rapid Plasma Reagin Non-Reactive (NonReactive)
--- NOTE | 2023-08-09 13:15 | PC.NURSE ---
Patient instructed to view the discharge video Mother & Baby Care, The First Two Weeks . Patient was given the opportunity and encouraged to ask questions. Patient verbalized understanding of information shared and has been given the mother/baby guide for home reference.
--- NOTE | 2023-08-09 13:15 | PC.NURSE ---
Patient educated on risks/benefits of MMR vaccine since she is rubella non-immune. Patient still declines booster and verbalizes understanding of risks/benefits of vaccination.
== END 2023-08-09 14:00 | disposition home or self-care (01) | DRG 807 ==
LOC: ANHOB2 08-09 10:53 → ANHLDR 08-10 13:09 → ANHOB2 08-10 13:09
PROVIDERS: Advanced Practice Midwife; Admitting Provider Obstetrics & Gynecology; Visit Provider Obstetrics & Gynecology
DX: O69.81X0 Labor and delivery complicated by cord around neck, without compression, not applicable or unspecified (principal); Z37.0 Single live birth; O70.0 First degree perineal laceration during delivery; Z3A.39 39 weeks gestation of pregnancy
CPT/HCPCS: 36415; 85014; 85018; 85025; 86592; 86850; 86900; 86901; 90715; 94640; A9270; J2405; J2590; J2795; J3010; J7120

== ENCOUNTER 2025-02-05 14:17 | Emergency (ER) | payer SELFPAY ==
[2025-02-05 14:29] VITALS: BP 107/74; PULSE 92; RESP 18; TEMP 37.9; O2SAT 100
--- NOTE | 2025-02-05 14:31 | ED.FEMALEGU ---
HPI - Female Genitourinary General Chief complaint: Urogenital-Female Stated complaint: UTI/Bodyaches Time Seen by Provider: 02/05/25 14:41 Source: patient and RN notes reviewed Mode of arrival: ambulatory Limitations: no limitations History of Present Illness HPI Narrative: 19-year-old female presents with concern for new onset of low back ache, body aches, chills, sweats for 2 days. She reports headache. She denies dysuria, frequency him urgency, suprapubic pressure. She reports history of UTI MD elicited complaint: UTI Related Data Allergies Allergy/AdvReac Type Severity Reaction Status Date / Time No Known Allergies Allergy Verified 02/05/25 14:18 Review of Systems Review of Systems: CONSTITUTIONAL: Reports malaise, chills, sweats, fever. CARDIOVASCULAR: Denies chest pain, palpitations, or edema. RESPIRATORY: Denies cough or dyspnea. GASTROINTESTINAL: Denies abdominal pain, nausea, vomiting, diarrhea GENITOURINARY: Denies dysuria, frequency, urgency, suprapubic pressure, hematuria. Reports flank pain SKIN: Denies rash or itching. MUSCULOSKELETAL: Reports low back pain and myalgia. All systems reviewed & are unremarkable except as noted in HPI and below PMFSH Past Medical History Medical History No pertinent past medical history Family History Family History Other Patient denies significant medical history Social History Social History Smoking status: Current every day smoker Tobacco type: e-cigarettes/vaping Substance use: current Last use: daily Do You Feel Safe in your Home?: Yes Lack of Transportation: No Lack of Food: Never True Current Housing: I Have Housing Concerned About Future Housing: No Difficulty Paying Gas/Electric Bills: No Difficulty Paying for Meds: No Currently Unemployed: No Education: Grade School Difficulty w/ Childcare or Family Care: No Spiritual care concerns: No Comments At time of signature, agree with nursing past medical, surgical, social and family history. There is no relevant family history pertinent to the presenting complaint Exam Narrative: GENERAL: Well-appearing, well-nourished, and in no acute distress. HEAD: Normocephalic. EYES: PERRLA, conjunctivae clear. NECK: Supple. No lymphadenopathy CHEST: Clear to auscultation. No respiratory distress. HEART: Regular rate and rhythm. ABDOMEN: Soft, nontender upon palpation, nondistended, no palpable or pulsatile masses, no guarding. CVA tenderness SKIN: Warm, dry, no rash. NEURO: Alert and oriented x3. PSYCH: Normal mood and affect Course Course Emergency Course: Patient is aware of diagnosis, understands and agrees to treatment plan. Anticipatory guidance given. Patient agrees to follow-up as directed and is aware of reasons to seek care at the emergency department. Portions of this record may have been created with voice recognition software Level of Care: Express Care Visit Vital Signs Vital signs: Vital Signs Temperature 100.2 F H 02/05/25 14:29 Pulse Rate 92 02/05/25 14:29 Respiratory Rate 18 02/05/25 14:29 Blood Pressure 107/74 02/05/25 14:29 Pulse Oximetry 100 02/05/25 14:29 Oxygen Delivery Room Air 02/05/25 14:29 Temperature 100.2 F H 02/05/25 14:29 Pulse Rate 92 02/05/25 14:29 Respiratory Rate 18 02/05/25 14:29 Blood Pressure 107/74 02/05/25 14:29 Pulse Oximetry 100 02/05/25 14:29 Oxygen Delivery Room Air 02/05/25 14:29 Reviewed. MDM - Female Genitourinary MDM Narrative Medical decision making narrative: Exam findings and UA show no acute concerns or changes; patient is non-toxic appearing and is in no distress. Patient is appropriate for outpatient treatment and follow-up. Differential Diagnosis Differential diagnosis: Likely urinary tract infection and cystitis Critical Care Time Critical Care Time Critical Care Time: No Discharge Plan Discharge Clinical Impression: Urinary tract infection Patient Disposition: Home Condition: Stable Instructions: Antibiotic Form, Urinary Tract Infection in Women (ED) Additional Instructions: We will send a urine culture to the lab; if the culture identifies an organism that the prescribed antibiotic will not treat, you will receive a phone call from an urgent care staff member and an appropriate antibiotic will be prescribed. -Your symptoms should begin to improve within a day of starting antibiotics. But you should finish all the antibiotic pills you get. Otherwise your infection might come back. -Also recommend: increase water intake. Tylenol/ibuprofen as needed for pain or fever -Follow-up with your primary care provider for urine recheck or seek ER visit if condition worsens with high fever, nausea, vomiting and severe back pain. Patient Language: Citizen Of [place] Prescriptions: New ciprofloxacin HCl 500 mg tablet 500 mg PO Q12H 7 Days Qty: 14 0RF Follow-up/Referrals: PHYSICIAN,CABLE LACER [Primary Care Provider, Internal Medicine] Time of Disposition: 14:49
[2025-02-05 14:45] LABS: EDUAAPPEAR Clear; EDUABILI 1+ (Negative); EDUABLOOD Trace (Negative); EDUACOLOR1 Dark; EDUAGLUCOSE Negative (Negative); EDUAKETONE 3+ (Negative); EDUALEUKO 1+ (Negative); EDUANITRATE Negative (Negative); EDUAPH 5.5; EDUAPROTEIN 1+ (Negative); EDUASPGRAVITY 1.015; EDUAUROBILI 0.2
== END 2025-02-05 14:55 | disposition home or self-care (01) ==
PROVIDERS: Emergency Provider Nurse Practitioner
DX: N39.0 Urinary tract infection, site not specified (principal); F17.290 Nicotine dependence, other tobacco product, uncomplicated
CPT/HCPCS: 81003; 87077; 87086; 87186; 99213; G0463